=== PATIENT | male | born 1960 | race Caucasian/White ===

== ENCOUNTER 2024-07-13 15:50 | Emergency (ER) | payer MEDICARE ==
[~2024-07-13] VITALS: Ht 167.6 cm; Wt 68.0 kg
[2024-07-13] MEDS: SODIUM CHLORIDE 0.9% 1000ML 500 ML IV ONE (16:54)
[2024-07-13 16:55] LABS: BASOPHILS % 0.5 % (0.0-1.0); EOSINOPHILS # (AUTO) 0.1 (0.0-0.4); EOSINOPHILS % 1.7 % (0.0-6.0); HEMOGLOBIN 15.7 g/dL (14.0-18.0); LYMPHOCYTES # (AUTO) 1.4 (1.0-3.2); LYMPHOCYTES % 19.1 % (18.0-39.1); MEAN CORPUSCULAR HEMOGLOBIN 27.4 pg (28-32); MEAN CORPUSCULAR HGB CONC 32.7 g/dL (31-35); MEAN CORPUSCULAR VOLUME 83.9 fL (81-99); MONOCYTES # (AUTO) 0.7 (0.2-0.8); NEUTROPHILS # (AUTO) 5.2 (2.1-6.9); PLATELET COUNT 290 x10e3/uL (140-360); RED BLOOD COUNT 5.72 x10e6/uL (4.3-5.7); RED CELL DISTRIBUTION WIDTH 15.3 % (11.7-14.4); WHITE BLOOD COUNT 7.53 x10e3/uL (4.8-10.8)
[2024-07-13 17:07] LABS: ALBUMIN 3.2 g/dL (3.5-5.0); ALBUMIN/GLOBULIN RATIO 0.7 (0.8-2.0); ANION GAP 18.7 mmol/L (8-16); BILIRUBIN,TOTAL 0.7 mg/dL (0.2-1.2); CALCIUM 9.5 mg/dL (8.4-10.2); CREATININE, SERUM 1.91 mg/dL (0.72-1.25)
[2024-07-13 17:08] LABS: POTASSIUM 5.7 mmol/L (3.5-5.1)
[2024-07-13 17:12] LABS: TROPONIN I 0.045 ng/mL (0-0.300)
[2024-07-13 18:44] VITALS: PULSE 61; RESP 18; TEMP 98.4; O2SAT 100
== END 2024-07-13 19:02 | disposition home or self-care (01) ==
LOC: ER 16:06
DX: E86.0 Dehydration (principal); I95.9 Hypotension, unspecified; R53.1 Weakness; I50.9 Heart failure, unspecified; R94.31 Abnormal electrocardiogram [ECG] [EKG]; F17.210 Nicotine dependence, cigarettes, uncomplicated
CPT/HCPCS: 36415; 71046; 80053; 82550; 83880; 84484; 85025; 93005; 99284; J7030